=== PATIENT | male | born 1960 | race Caucasian/White ===

== ENCOUNTER 2020-01-24 16:13 | Emergency (ER) | payer MEDICAID ==
[~2020-01-24] VITALS: Ht 177.8 cm; Wt 70.0 kg
--- NOTE | 2020-01-24 16:19 | NUR ---
FROY. REPORT RECEIVED FROM EMS. PT C/O HYPOTENSION AND WEAKNESS. PT HAD SYNCOPE EPISODE ON SUNDAY. PT DENIES TRAUMA/DZY/PAIN/BLOOD THINNER. PT'S AOX4. RESPS EVEN AND UNLABORED. ALL MONITORS IN PLACE. CALL LIGHT WITHIN REACH. PT ALSO STATED"I HAVE DIARRHEA FOR 2 YEARS." EKG DONE AT BEDSIDE.
[2020-01-24] MEDS ORDERED: SODIUM CHLORIDE 0.9%, 500ML IVBOLUS ONE ×2 (16:30→18:00)
--- NOTE | 2020-01-24 16:44 | NUR ---
orthostats DONE AT BEDSIDE. EDMD NOTIFIED PT HAS HYPO.
--- NOTE | 2020-01-24 16:49 | NUR ---
ns infusing at this time. pt tolerated well.
[2020-01-24 17:22] LABS: BASOPHILS # (AUTO) 0.06 x10^3/uL (0-0.1); BASOPHILS % (AUTO) 1 % (0-1); EOSINOPHILS # (AUTO) 0.12 x10^3/uL (0-0.4); EOSINOPHILS % (AUTO) 1 % (1-7); LYMPHOCYTES # (AUTO) 1.74 x10^3/uL (1-3.4); LYMPHOCYTES % (AUTO) 14 % (22-44); MD NO; MEAN CORPUSCULAR HEMOGLOBIN 28.3 pg (27.5-34.5); MEAN CORPUSCULAR HGB CONC 32.7 g/dL (33.2-36.2); MEAN PLATELET VOLUME 6.9 fL (7.4-10.4); MONOCYTES # (AUTO) 1.07 x10^3/uL (0.2-0.8); MONOCYTES % (AUTO) 9 % (2-9); NEUTROPHILS # (AUTO) 9.49 x10^3/uL (1.8-6.8); NEUTROPHILS % (AUTO) 76 % (42-75); PLATELET COUNT 434 x10^3/uL (130-400); RED BLOOD COUNT 3.98 x10^6/uL (4.38-5.82); RED CELL DISTRIBUTION WIDTH 13.6 % (9.4-14.8)
[2020-01-24 17:27] LABS: ALBUMIN 2.9 g/dL (3.4-5.0); ANION GAP 7 mmol/L (5-15); CALCIUM 8.3 mg/dL (8.5-10.1); CHLORIDE 107 mmol/L (98-107); CREATININE 1.51 mg/dL (0.7-1.3)
--- NOTE | 2020-01-24 17:40 | NUR ---
pt using bedside comode at this time.
[2020-01-24] MEDS ORDERED: POTASSIUM CHLORIDE 20 MEQ TAB.ER.PRT ONE (17:43)
--- NOTE | 2020-01-24 17:48 | NUR ---
PT MEDICATED PER EMAR. PT TOLERATED WELL.
[2020-01-24] MEDS ORDERED: POTASSIUM CHLORIDE 20 MEQ TAB.ER.PRT PO ONE (18:00)
[2020-01-24 18:14] LABS: IRON LEVEL 22 mcg/dL (65-175)
[2020-01-24 18:38] VITALS: BP 146/86
--- NOTE | 2020-01-24 18:38 | NUR ---
pt resting in [facility]. pt's aox4. resps even and unlabored. bp/spo2 monitors in place. call light within reach. pt denies any needs or concerns at this time.
[2020-01-24 18:39] LABS: % IRON SATURATION 8 % (20-55); TOTAL IRON BINDING CAPACITY 287 mcg/dL (250-450)
--- NOTE | 2020-01-24 18:55 | NUR ---
report given to suzanne holder.
--- NOTE | 2020-01-24 18:56 | NUR ---
REPORT FROM REMBERTO LOFTON, ASSUMING CARE OF PT AT THIS TIME
--- NOTE | 2020-01-24 19:47 | NUR ---
PT RESTING ON [facility] AT THIS TIME AWAITING DISPO
--- NOTE | 2020-01-24 19:52 | NUR ---
DR HAMILTON AT BEDSIDE FOR REASSESS AND DISCUSS POC
== END 2020-01-24 20:30 | disposition home or self-care (01) ==
LOC: ED 18:30
DX: R19.7 Diarrhea, unspecified (principal); E86.0 Dehydration; R55 Syncope and collapse; R42 Dizziness and giddiness; R94.31 Abnormal electrocardiogram [ECG] [EKG]
CPT/HCPCS: 36415; 80048; 82040; 82607; 83540; 83550; 83735; 85025; 93005; 96360; 96361; 99284; J7040